=== PATIENT | male | born 1950 | race Caucasian/White ===

== ENCOUNTER → 2021-11-08 | Outpatient (CLI) | payer BC, OTHER ==
[~2021-11-08] MED LIST: ASPI325 PO; ATOR40TA; CARV6.25 PO; CLOP75 PO; FURO20 PO; HYDACE5 PO; HYDR1TAB94 PO; LISI5 PO; MAGNESIUM400 M1 PO; NAPR550 PO; SPIR25 PO; Valium5 MG PO
== END ==
LOC: LAB SHORT 11:00
DX: R31.9 Hematuria, unspecified (principal)
CPT/HCPCS: 87077; 87086; 87186

== ENCOUNTER → 2021-11-23 | Outpatient (CLI) | payer BC, OTHER ==
[2021-11-23 13:03] LABS: BASOPHILS ABSOLUTE AUTO 0.04 K/mm3 (0.00-0.23); BASOPHILS PERCENT AUTO 1 % (0-2); EOSINOPHILS ABSOLUTE AUTO 0.26 K/mm3 (0.00-0.68); EOSINOPHILS PERCENT AUTO 4 % (0-6); Hematocrit 48.8 % (37.0-53.0); IMMATURE GRAN ABSOLUTE AUTO 0.01 K/mm3 (0.00-0.10); IMMATURE GRAN PERCENT AUTO 0 % (0-1); LYMPHOCYTES ABSOLUTE AUTO 0.97 K/mm3 (0.84-5.20); LYMPHOCYTES PERCENT AUTO 15 % (21-46); MONOCYTES ABSOLUTE AUTO 0.55 K/mm3 (0.16-1.47); MONOCYTES PERCENT AUTO 8 % (4-13); Mean Corpuscular HGB 31.3 pg (26.0-34.0); Mean Corpuscular HGB Conc 32.8 g/dL (31.5-36.5); Mean Corpuscular Volume 96 fL (80-100); NEUTROPHILS PERCENT AUTO 72 % (41-73); Platelet Count 261 K/mm3 (150-400); RDW Coefficient Variation 12.3 % (11.7-14.2); RDW Standard Deviation 43.3 fL (35.1-46.3); Red Blood Cell Count 5.11 M/mm3 (4.30-5.90); White Blood Cell Count 6.53 K/mm3 (4.00-11.30)
[2021-11-23 13:18] LABS: International Normalized Ratio 0.98; Prothrombin Time Results 10.3 Sec (9.7-11.5)
[2021-11-23 13:24] LABS: Alanine Aminotransfer (ALT/SGP 27 U/L (12-78); Albumin, Blood 4.3 g/dL (3.4-5.0); Albumin/Globulin Ratio 1.3 (0.8-1.8); Alk Phos 64 U/L (50-136); Anion Gap 4 mmol/L (6-16); Aspartate Aminotrans (AST/SGOT 23 U/L (12-37); Bilirubin, Direct 0.1 mg/dL (0.0-0.3); Bilirubin, Indirect 0.4 mg/dL (0.1-0.7); Bilirubin, Total 0.5 mg/dL (0.1-1.0); Blood Urea Nitrogen 24 mg/dL (8-24); Bun/Creatinine Ratio 26.5 (12.0-20.0); CO2, Blood 30 mmol/L (21-32); Calcium, Blood 8.9 mg/dL (8.5-10.1); Chloride, Blood 106 mmol/L (98-108); Globulin, Blood 3.4 g/dL (2.2-4.0); Glomerular Filtration Rate >60 (60-); Glucose, Blood 89 mg/dL (70-99); Magnesium, Blood 2.2 mg/dL (1.6-2.4); Potassium, Blood 4.6 mmol/L (3.5-5.5); Sodium, Blood 140 mmol/L (136-145); Total Protein, Blood 7.7 g/dL (6.4-8.2)
== END | disposition home or self-care (01) ==
LOC: LAB 11:59 → LAB SHORT 11:59
PROVIDERS: Nurse Practitioner Family
DX: R10.10 Upper abdominal pain, unspecified (principal); R10.11 Right upper quadrant pain; R53.83 Other fatigue
CPT/HCPCS: 80053; 82248; 83690; 83735; 84443; 85025; 85610; 85730

== ENCOUNTER 2022-11-08 06:36 | Day surgery (SDC) | payer BC, OTHER ==
[~2022-11-08] VITALS: Ht 175.3 cm; Wt 93.0 kg
[~2022-11-08 06:36] MED LIST changes: -ATOR40TA; +ATOR40TA PO; +Aspir 8181 MG PO; +CARV3.125 PO; +IBUP200 PO; +Lisinopril2.5 MG PO
[2022-11-08 07:14] VITALS: BP 122/90
[2022-11-08 09:27] VITALS: BP 101/70
[2022-11-08 09:30] VITALS: BP 96/60
--- NOTE | 2022-11-08 09:30 | NUR ---
PATIENT ARRIVED TO RECOVERY ROOM SITTING UPRIGHT IN RECLINER, CONVERSING APPROPRIATELY. R RADIAL TR BAND FULLY INFLATED, SITE C/D/I, SOFT/NONTENDER, NO EVIDENCE OF HEMATOMA. PATIENT DENYING ANY CP. VSS ON ROOM AIR.
[2022-11-08 09:45] VITALS: BP 98/65
--- NOTE | 2022-11-08 09:46 | NUR ---
PATIENT SITTING UPRIGHT IN RECLINER, CONVERSING APPROPRIATELY WITH SON AT BEDSIDE. R TR BAND FULLY INFLATED, SITE C/D/I SOFT/NONTENDER, NO EVIDENCE OF HEMATOMA. PATIENT TOLERATING PO INTAKE WELL. VSS ON ROOM AIR.
[2022-11-08 10:00] VITALS: BP 92/63
--- NOTE | 2022-11-08 11:00 | NUR ---
INITIAL AIR REMOVED FROM R RADIAL TR BAND. SITE C/D/I, SOFT/NONTENDER, NO EVIDENCE OF HEMATOMA. PATIENT DENYING ANY CP. VSS ON ROOM AIR.
--- NOTE | 2022-11-08 11:30 | NUR ---
ALL AIR REMOVED FROM R RADIAL TR BAND. SITE C/D/I, SOFT/NONTENDER, NO EVIDENCE OF HEMATOMA. VSS ON ROOM AIR.
--- NOTE | 2022-11-08 12:00 | NUR ---
PATIENT DISCHARGED HOME AT THIS TIME. PATIENT DISCHARGE PAPERWORK AND FOLLOW UP APPOINTMENT REVIEWED WITH PATIENT AND SON AT BEDSIDE. ALL QUESTIONS WERE ANSWERED. R RADIAL TR BAND REMOVED, SITE C/D/I, CLOTH DOT PLACED. PATIENT INSTRUCTED ON RADIAL ACCESS SITE CARE. VSS. PIV REMOVED WITHOUT DIFFICULTY, CATHETER INTACT. VSS. ALL PATEINT BELONGINGS AND PAPERWORK LEFT WITH PATIENT. PATIENT WHEELED TO PATIENT ENTRANCE AND SON ABLE TO TRANSPORT PATIENT HOME.
== END 2022-11-08 13:47 | disposition home or self-care (01) ==
LOC: MHTC 06:36
DX: I25.10 Atherosclerotic heart disease of native coronary artery without angina pectoris (principal); R53.1 Weakness; I25.5 Ischemic cardiomyopathy; R53.83 Other fatigue; E78.5 Hyperlipidemia, unspecified; G47.33 Obstructive sleep apnea (adult) (pediatric); I10 Essential (primary) hypertension
CPT/HCPCS: 76937; 85347; 93458; 99152; 99153; A9270; C1725; C1769; C1874; C1887; C1894; C9600; C9607; J1644; J2250; J3010; J3246; J7030; J7040; J7050; Q9967

== ENCOUNTER 2024-04-15 11:50 | Day surgery (SDC) | payer BC, OTHER ==
[~2024-04-15] VITALS: Ht 180.3 cm; Wt 90.1 kg
[~2024-04-15 11:50] MED LIST changes: +FARXIGA10 MG PO; +LOSA25 PO; +Lactated Ringer's 1,000 ML IV ONE
[2024-04-15] MEDS ORDERED: Lactated Ringer's 1,000 ML IV ONE (12:57)
[2024-04-15] MEDS ORDERED: propofoL 40 ML IV ONE (13:02)
[2024-04-15 14:32] VITALS: BP 107/67
== END 2024-04-15 14:54 | disposition home or self-care (01) ==
LOC: ORSCSDS 11:50
PROVIDERS: Surgery
PROC: 0DBM8ZX Excision of Descending Colon, Via Natural or Artificial Opening Endoscopic, Diagnostic (ICD-10-PCS; principal; 2024-04-15 13:00)
DX: Z12.11 Encounter for screening for malignant neoplasm of colon (principal); R19.5 Other fecal abnormalities; D12.4 Benign neoplasm of descending colon; K63.5 Polyp of colon; I25.83 Coronary atherosclerosis due to lipid rich plaque; I25.10 Atherosclerotic heart disease of native coronary artery without angina pectoris; I10 Essential (primary) hypertension; G47.33 Obstructive sleep apnea (adult) (pediatric); E78.5 Hyperlipidemia, unspecified; I25.2 Old myocardial infarction; Z79.02 Long term (current) use of antithrombotics/antiplatelets; Z79.82 Long term (current) use of aspirin; Z79.899 Other long term (current) drug therapy
CPT/HCPCS: 88305; J2704; J7120